=== PATIENT | female | born 1980 | race Caucasian/White ===

== ENCOUNTER 2016-08-07 00:25 | Emergency (ER) | payer SELFPAY ==
[2016-08-07] MEDS ORDERED: HYDROCODONE/ACETAMINOPHEN 5-325 MG TABLET PO ONE (01:57)
[2016-08-07] MEDS ORDERED: HYDROCODONE/ACETAMINOPHEN 5-325 MG 6 TAB/DSPK PO PRN (01:57)
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
[2016-08-07 03:12] VITALS: BP 134/76
== END 2016-08-07 02:50 | disposition home or self-care (01) ==
LOC: ER 00:25
PROC: 2W3FX1Z Immobilization of Left Hand using Splint (ICD-10-PCS; principal; 2016-08-07)
DX: S62.617A Displaced fracture of proximal phalanx of left little finger, initial encounter for closed fracture (principal); Y04.0XXA Assault by unarmed brawl or fight, initial encounter; I10 Essential (primary) hypertension; Z98.51 Tubal ligation status; Z88.2 Allergy status to sulfonamides
CPT/HCPCS: 99283

== ENCOUNTER 2017-07-17 17:17 | Emergency (ER) | payer SELFPAY ==
[2017-07-17 18:18] VITALS: BP 129/67
--- NOTE | 2017-07-17 18:52 | ER Document Report ---
ED Medical Screen (RME) - General Chief Complaint: Feet Swelling Stated Complaint: FOOT PAIN Time Seen by Provider: 07/17/17 18:46 Mode of Arrival: Ambulatory Information source: Patient TRAVEL OUTSIDE OF THE [place] IN LAST 30 DAYS: No - HPI Notes: 07/17/17 18:47 37 yr old with a hx of postural orthostatic tachycardia syndrome, SVT, syncopal events reports change in LOC, increased swelling in bilateral ankles/foot, SOB, dizziness, chest pain and shaking that started approximately 18 hours ago. worse with time, nothing makes better. denies any trauma. unable to seek healthcare due to no health insurance. denies . in no active distress. no blood thinners. takes daily asa. 07/17/17 18:54 - Related Data Allergies/Adverse Reactions: Sulfa (Sulfonamide Antibiotics) Allergy (Verified 07/17/17 18:12) Past Medical History - Past Medical History Cardiac Medical History: Reports: Hx Hypertension - Labile Pulmonary Medical History: Reports: Hx Asthma Renal/ Medical History: Denies: Hx Peritoneal Dialysis Musculoskeltal Medical History: Reports Hx Fibromyalgia Psychiatric Medical History: Reports: Hx Anxiety Past Surgical History: Reports: Hx Tonsillectomy, Hx Tubal Ligation - Immunizations Immunizations up to date: Yes Hx Diphtheria, Pertussis, Tetanus Vaccination: Yes Physical Exam - Vital signs Vitals: Temp Pulse Resp BP Pulse Ox 98.4 F 131 H 12 129/67 H 98 07/17/17 18:17 07/17/17 18:17 07/17/17 18:17 07/17/17 18:17 07/17/17 18:17 - Respiratory Respiratory status: No respiratory distress Chest status: Nontender Breath sounds: Normal Chest palpation: Normal - Cardiovascular Rhythm: Regular, Tachycardia Heart sounds: Normal auscultation Murmur: No Normal capillary refill: No - Skin Skin Temperature: Warm Skin Moisture: Dry - bilateral pedal edema. + distal pulses Course - Vital Signs Vital signs: Temp Pulse Resp BP Pulse Ox 98.4 F 131 H 12 129/67 H 98 07/17/17 18:17 07/17/17 18:17 07/17/17 18:17 07/17/17 18:17 07/17/17 18:17
--- NOTE | 2017-07-17 19:35 | RADIOLOGY REPORT (SQ) ---
EXAM DESCRIPTION: CHEST PA/LAT COMPLETED DATE/TIME: 07/17/2017 7:13 pm REASON FOR STUDY: sob COMPARISON: 06/22/2015 EXAM PARAMETERS: NUMBER OF VIEWS: two views TECHNIQUE: Digital Frontal and Lateral radiographic views of the chest acquired. RADIATION DOSE: NA LIMITATIONS: none FINDINGS: LUNGS AND PLEURA: No opacities, masses or pneumothorax. No pleural effusion. MEDIASTINUM AND HILAR STRUCTURES: No masses or contour abnormalities. HEART AND VASCULAR STRUCTURES: Heart normal size. No evidence for failure. BONES: No acute findings. HARDWARE: None in the chest. OTHER: No other significant finding. IMPRESSION: NO SIGNIFICANT RADIOGRAPHIC FINDING IN THE CHEST. TECHNICAL DOCUMENTATION: JOB ID: [id number] [employer]- All Rights Reserved
== END 2017-07-17 21:30 | disposition left against medical advice (07) ==
LOC: ER 17:17
DX: M79.89 Other specified soft tissue disorders (principal); M79.672 Pain in left foot; M79.671 Pain in right foot; I10 Essential (primary) hypertension; Z98.51 Tubal ligation status; Z88.2 Allergy status to sulfonamides
CPT/HCPCS: 71046; 99281

== ENCOUNTER 2017-11-18 00:13 | Emergency (ER) | payer MEDICAID ==
[2017-11-18 00:20] VITALS: BP 115/64
== END 2017-11-18 03:30 | disposition left against medical advice (07) ==
LOC: ER 00:13
DX: Z53.21 Procedure and treatment not carried out due to patient leaving prior to being seen by health care provider (principal)

== ENCOUNTER 2018-01-12 00:21 | Emergency (ER) | payer MEDICAID ==
--- NOTE | 2018-01-12 04:11 | ER Document Report ---
ED Medical Screen (RME) - General Chief Complaint: Probable Seizure Stated Complaint: HIT HEAD Time Seen by Provider: 01/12/18 04:07 Mode of Arrival: Ambulatory Information source: Patient Notes: 37-year-old female patient who presents with chief complaint of seizure. Patient reports she was on the phone with her father when she "passed out, woke up sometime later, had urinated on herself and felt all over soreness to entire body. Patient reports she also noted seizure 3 weeks ago. Patient reports that was the first time she ever had a seizure, did not seek medical treatment. Patient does not take any medications for seizures. Patient reports she has been under extreme stress lately. Patient also reports headaches every day for the last 3 weeks, reports that they are intermittent. Patient does report having headaches in the past however she states these headaches are "different" . Patient does have a past medical history of hypertension, pots, SVT. Patient is a smoker. Patient denies any alcohol use. Exam: Hematoma noted to right forehead. Patient alert, oriented and not postictal at this time. Lung sounds clear to auscultation bilaterally. I have greeted and performed a rapid initial assessment of this patient. A comprehensive ED assessment and evaluation of the patient, analysis of test results and completion of the medical decision making process will be conducted by additional ED providers. Dictation of this chart was performed using voice recognition software; therefore, there may be some unintended grammatical errors. TRAVEL OUTSIDE OF THE [place] IN LAST 30 DAYS: No - Related Data Allergies/Adverse Reactions: Sulfa (Sulfonamide Antibiotics) Allergy (Verified 07/17/17 18:12) Past Medical History - Past Medical History Cardiac Medical History: Reports: Hx Hypertension - Labile Pulmonary Medical History: Reports: Hx Asthma Renal/ Medical History: Denies: Hx Peritoneal Dialysis Musculoskeltal Medical History: Reports Hx Fibromyalgia Psychiatric Medical History: Reports: Hx Anxiety Past Surgical History: Reports: Hx Tonsillectomy, Hx Tubal Ligation - Immunizations Immunizations up to date: Yes Hx Diphtheria, Pertussis, Tetanus Vaccination: Yes Physical Exam - Vital signs Vitals: Temp Pulse Resp BP Pulse Ox 98.0 F 85 17 139/78 H 99 01/12/18 00:32 01/12/18 00:32 01/12/18 00:32 01/12/18 00:32 01/12/18 00:32 Course - Vital Signs Vital signs: Temp Pulse Resp BP Pulse Ox 98.0 F 85 17 139/78 H 99 01/12/18 00:32 01/12/18 00:32 01/12/18 00:32 01/12/18 00:32 01/12/18 00:32
[2018-01-12 05:10] LABS: ABSOLUTE EOSINOPHILS # (AUTO) 0.3 10^3/uL (0.0-0.6); ABSOLUTE LYMPHOCYTES (AUTO) 3.8 10^3/uL (0.5-4.7); ABSOLUTE MONOCYTES (AUTO) 0.7 10^3/uL (0.1-1.4); ABSOLUTE NEUT (AUTO) 5.5 10^3/uL (1.7-8.2); BASOPHILS % (AUTO) 0.4 % (0-2); EOSINOPHILS % (AUTO) 2.7 % (0-6); HEMATOCRIT 42.9 % (36.0-47.0); LYMPHOCYTES % (AUTO) 37.2 % (13-45); MEAN CORPUSCULAR HGB CONC 34.9 g/dL (32.0-36.0); MEAN CORPUSCULAR VOLUME 92 fl (80-97); MONOCYTES % (AUTO) 6.4 % (3-13); PLATELET COUNT 188 10^3/uL (150-450); RED BLOOD COUNT 4.67 10^6/uL (3.72-5.28); RED CELL DISTRIBUTION WIDTH 12.8 % (11.5-14.0); SEGMENTED NEUTROPHILS % (AUTO) 53.3 % (42-78); TOTAL CELLS COUNTED % (AUTO) 100 %; WHITE BLOOD COUNT 10.2 10^3/uL (4.0-10.5)
[2018-01-12 05:15] LABS: APPEARANCE,URINE SLIGHTLY-CLOUDY; BILIRUBIN,URINE NEGATIVE (NEGATIVE); COLOR,URINE YELLOW; GLUCOSE, URINE NEGATIVE (NEGATIVE); KETONES,URINE NEGATIVE (NEGATIVE); LEUKOCYTE ESTERASE,URINE TRACE (NEGATIVE); NITRITE,URINE NEGATIVE (NEGATIVE); PROTEIN,URINE NEGATIVE (NEGATIVE); URINE SPECIFIC GRAVITY 1.024; UROBILINOGEN,URINE NEGATIVE mg/dL (<2.0)
[2018-01-12 05:29] LABS: ALANINE AMINOTRANSFERASE 22 U/L (9-52); ALKALINE PHOSPHATASE 60 U/L (38-126); ANION GAP 16 (5-19); ASPARTATE AMINO TRANSFERASE 19 U/L (14-36); BILIRUBIN,DIRECT 0.3 mg/dL (0.0-0.4); BILIRUBIN,TOTAL 0.3 mg/dL (0.2-1.3); BLOOD UREA NITROGEN 15 mg/dL (7-20); CALCIUM 10.4 mg/dL (8.4-10.2); CARBON DIOXIDE 31 mmol/L (22-30); CHLORIDE 103 mmol/L (98-107); GLUCOSE 113 mg/dL (75-110); POTASSIUM 5.4 mmol/L (3.6-5.0); SODIUM 149.5 mmol/L (137-145); TOTAL PROTEIN 8.4 g/dL (6.3-8.2)
--- NOTE | 2018-01-12 05:31 | RADIOLOGY REPORT (SQ) ---
EXAM DESCRIPTION: CT HEAD WITHOUT IV CONTRAST COMPLETED DATE/TME: 01/12/2018 04:07 CLINICAL HISTORY: new onset seizures COMPARISON: 07/14/2014 TECHNIQUE: Axial CT of the head obtained from the skull apex to the skull base without contrast. FINDINGS: No acute intracranial hemorrhage identified. No mass, mass effect, shift of the midline, abnormal extra-axial fluid collection or CT evidence of acute ischemic change identified. The ventricular system is unremarkable. No acute abnormalities of the supratentorial white matter, basal ganglia, cerebellum, or brainstem. The visualized paranasal sinuses and the mastoids are clear. No skull fracture identified. Visualized orbits and globes are unremarkable. DLP: 1150.19 mGy-cm IMPRESSION: 1. No acute intracranial abnormality identified. This exam was performed according to our departmental dose-optimization program, which includes automated exposure control, adjustment of the mA and/or kV according to patient size and/or use of iterative reconstruction technique.
--- NOTE | 2018-01-12 07:59 | ER Document Report ---
ED Seizure <ZAINAB COVARRUBIAS - Last Filed: 01/12/18 08:05> - General Information source: Patient <DANNY SO - Last Filed: 01/12/18 11:14> - General Chief Complaint: Probable Seizure Stated Complaint: HIT HEAD Time Seen by Provider: 01/12/18 04:07 Notes: 37-year-old female that presents to the emergency department today with complaints of a seizure prior to arrival. Patient states she was on her phone with a dad at 1947 last night when her symptoms began. Patient states she was on the phone with him and the next thing she remembers her dog was licking her face. Patient states that she vomited and urinated on herself during that episode. Patient has a right forehead hematoma from the fall from standing that occurred during the seizure. Patient had a witnessed generalized seizure 3 weeks ago which was her first seizure. This makes her second seizure in 3 weeks although she has never formally been diagnosed with any seizure disorder. (DANNY SO) - Related Data Allergies/Adverse Reactions: Sulfa (Sulfonamide Antibiotics) Allergy (Verified 07/17/17 18:12) Past Medical History - General Information source: Patient - Social History Smoking Status: Current Every Day Smoker Cigarette use (# per day): Yes Frequency of alcohol use: None Drug Abuse: None Lives with: Family Family History: Reviewed & Not Pertinent Patient has suicidal ideation: No Patient has homicidal ideation: No - Past Medical History Cardiac Medical History: Reports: Hx Hypertension - Labile Pulmonary Medical History: Reports: Hx Asthma Neurological Medical History: Reports: Hx Seizures Musculoskeletal Medical History: Reports Hx Fibromyalgia Psychiatric Medical History: Reports: Hx Anxiety Past Surgical History: Reports: Hx Tonsillectomy, Hx Tubal Ligation - Immunizations Immunizations up to date: Yes Hx Diphtheria, Pertussis, Tetanus Vaccination: Yes <DANNY SO - Last Filed: 01/12/18 11:14> Review of Systems - Review of Systems Constitutional: No symptoms reported EENT: No symptoms reported Cardiovascular: No symptoms reported Respiratory: No symptoms reported Gastrointestinal: No symptoms reported Genitourinary: No symptoms reported Female Genitourinary: No symptoms reported Musculoskeletal: No symptoms reported Skin: No symptoms reported Hematologic/Lymphatic: No symptoms reported Neurological/Psychological: See HPI, Seizure -: Yes All other systems reviewed and negative <DANNY SO - Last Filed: 01/12/18 11:14> Physical Exam <ZAINAB COVARRUBIAS - Last Filed: 01/12/18 08:05> <DANNY SO - Last Filed: 01/12/18 11:14> - Vital signs Vitals: Temp Pulse Resp BP Pulse Ox 98.0 F 85 17 139/78 H 99 01/12/18 00:32 01/12/18 00:32 01/12/18 00:32 01/12/18 00:32 01/12/18 00:32 - Notes Notes: Physical Exam: General: Alert, appears well. 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 HEENT: Normocephalic. Large hematoma on right forehead. PERRL. Extraocular movements intact. Oropharynx clear. No tongue laceration. Neck: Supple. Non-tender. Respiratory: No respiratory distress. Clear and equal breath sounds bilaterally. Cardiovascular: Regular rate and rhythm. Abdominal: Normal Inspection. Non-tender. No distension. Normal Bowel Sounds. Back: Non-tender. No deformity or step off. Extremities: Moves all four extremities. Upper extremities: Normal inspection. Normal ROM. Lower extremities: Normal inspection. No edema. Normal ROM. Neurological: Normal cognition. AAOx4. Normal speech. Psychological: Normal affect. Normal Mood. Skin: Warm. Dry. Normal color. (DANNY SO) Course - Laboratory Result Diagrams: 01/12/18 04:30 01/12/18 04:30 - Diagnostic Test Radiology reviewed: Reports reviewed - CT scan shows large hematoma to the right forehead, no intracranial abnormalities. - EKG Interpretation by Al EKG shows normal: Sinus rhythm, [place], Intervals, QRS Complexes, ST-T Waves Rate: Normal - 59 Rhythm: NSR <ZAINAB COVARRUBIAS - Last Filed: 01/12/18 08:05> - Laboratory Result Diagrams: 01/12/18 04:30 01/12/18 04:30 <DANNY SO - Last Filed: 01/12/18 11:14> - Vital Signs Vital signs: Temp Pulse Resp BP Pulse Ox 98.1 F 63 12 106/87 H 99 01/12/18 05:39 01/12/18 04:40 01/12/18 08:00 01/12/18 08:00 01/12/18 08:00 - Laboratory Laboratory results interpreted by me: 01/12/18 01/12/18 04:30 04:30 Sodium 149.5 H Potassium 5.4 H Carbon Dioxide 31 H Glucose 113 H Calcium 10.4 H Total Protein 8.4 H Ur Leukocyte Esterase TRACE H Discharge <ZAINAB COVARRUBIAS - Last Filed: 01/12/18 08:05> <DANNY SO - Last Filed: 01/12/18 11:14> - Discharge Clinical Impression: Seizure disorder Forehead contusion Qualifiers: Encounter type: initial encounter Qualified Code(s): S00.83XA - Contusion of other part of head, initial encounter Condition: Stable Disposition: HOME, SELF-CARE Additional Instructions: Seizure You have had a seizure. Seizure disorders (epilepsy) of one sort or another affect about one out of 50 people. The seizure occurs because of abnormal electrical activity in the brain. Seizures may be due to drugs and alcohol, strokes, brain injury, or infection. In the most common form of epilepsy, no cause can be found. You will require further evaluation to determine the cause of your seizure, and to determine whether anti-seizure medication is required. This follow-up testing is important, so please call us if you encounter problems with scheduling of tests or appointments. YOU SHOULD NOT DRIVE until released to do so by your physician. The law requires that seizures be reported to the electric truck driver's license bureau--a seizure while driving could be catastrophic. Call the doctor if seizures recur, or if you develop new symptoms such as fever, severe headache, stiff neck, confusion or increasing sleepiness, weakness or numbness, or visual problems. Take medication as prescribed to reduce the risk of another seizure. Use ice packs to her forehead today to help reduce the swelling and pain. Follow-up with your doctor Monday morning to discuss working up your seizure disorder. RETURN TO THE EMERGENCY ROOM IF ANY NEW OR WORSENING SYMPTOMS. Prescriptions: Levetiracetam [Keppra 500 mg Tablet] 500 mg PO Q12 #30 tablet Scribe Attestation: 01/12/18 08:04 I personally performed the services described in the documentation, reviewed and edited the documentation which was dictated to the scribe in my presence, and it accurately records my words and actions. (ZAINAB COVARRUBIAS) Scribe Documentation - Scribe Written by Sakina:: Sakina Lee, 01/12/2018 1114 acting as scribe for :: Brian <DANNY SO - Last Filed: 01/12/18 11:14>
[2018-01-12] MEDS ORDERED: LEVETIRACETAM 500 MG TABLET PO ONE (08:02)
[2018-01-12 08:22] VITALS: BP 106/87
[2018-01-12 08:32] LABS: CREATINE KINASE 55 U/L (30-135)
[2018-01-12 08:40] LABS: URINE AMPHETAMINES SCREEN NEGATIVE; URINE BARBITURATES SCREEN NEGATIVE; URINE BENZODIAZEPINES SCREEN UNCONFIRMED POSITIVE; URINE COCAINE SCREEN NEGATIVE; URINE MARIJUANA (THC) SCREEN NEGATIVE; URINE METHADONE SCREEN NEGATIVE; URINE PHENCYCLIDINE SCREEN NEGATIVE
--- NOTE | 2018-01-12 09:58 | EKG REPORT ---
SEVERITY:- NORMAL ECG - SINUS RHYTHM : Confirmed by: Noa Candelario MD 12-Jan-2018 09:58:09
== END 2018-01-12 08:29 | disposition home or self-care (01) ==
LOC: ER 00:21
DX: G40.909 Epilepsy, unspecified, not intractable, without status epilepticus (principal); S00.83XA Contusion of other part of head, initial encounter; W18.39XA Other fall on same level, initial encounter; Y93.89 Activity, other specified; R11.10 Vomiting, unspecified; R32 Unspecified urinary incontinence; I49.8 Other specified cardiac arrhythmias; F17.210 Nicotine dependence, cigarettes, uncomplicated; I10 Essential (primary) hypertension; Z88.2 Allergy status to sulfonamides
CPT/HCPCS: 93005; 99285; 36415; 82550; 83735; 85025; 81025; 80053; 81001; 80307; 70450; 93010; J3490

== ENCOUNTER 2018-02-03 11:32 | Emergency (ER) | payer MEDICAID ==
--- NOTE | 2018-02-03 12:02 | ER Document Report ---
ED Medical Screen (RME) - General Chief Complaint: Probable Seizure Stated Complaint: SEIZURES Time Seen by Provider: 02/03/18 12:01 TRAVEL OUTSIDE OF THE [place] IN LAST 30 DAYS: No - HPI Notes: 02/03/18 12:01 Possible seizure disorder has not followed up with neurology since her last visit was started on Keppra here states compliance with Keppra no obvious distress upon my evaluation possible seizures today - Related Data Allergies/Adverse Reactions: Sulfa (Sulfonamide Antibiotics) Allergy (Verified 02/03/18 11:45) Past Medical History - Past Medical History Cardiac Medical History: Reports: Hx Hypertension - Labile Pulmonary Medical History: Reports: Hx Asthma Neurological Medical History: Reports: Hx Seizures Renal/ Medical History: Denies: Hx Peritoneal Dialysis Musculoskeltal Medical History: Reports Hx Fibromyalgia Psychiatric Medical History: Reports: Hx Anxiety Past Surgical History: Reports: Hx Tonsillectomy, Hx Tubal Ligation - Immunizations Immunizations up to date: Yes Hx Diphtheria, Pertussis, Tetanus Vaccination: Yes Review of Systems - Review of Systems Constitutional: Other - Seizure Physical Exam - Respiratory Respiratory status: No respiratory distress Chest status: Nontender Breath sounds: Normal Chest palpation: Normal - Cardiovascular Rhythm: Regular Heart sounds: Normal auscultation
[2018-02-03] MEDS ORDERED: NORMAL SALINE 1000 ML 1,000 ML IV ONE (12:03)
[2018-02-03 12:47] LABS: ABSOLUTE LYMPHOCYTES (AUTO) 1.5 10^3/uL (0.5-4.7); ABSOLUTE MONOCYTES (AUTO) 0.4 10^3/uL (0.1-1.4); ABSOLUTE NEUT (AUTO) 7.5 10^3/uL (1.7-8.2); BASOPHILS % (AUTO) 0.2 % (0-2); EOSINOPHILS % (AUTO) 0.1 % (0-6); HEMATOCRIT 42.3 % (36.0-47.0); HEMOGLOBIN 14.6 g/dL (12.0-15.5); LYMPHOCYTES % (AUTO) 15.9 % (13-45); MEAN CORPUSCULAR HEMOGLOBIN 31.2 pg (27.0-33.4); MEAN CORPUSCULAR HGB CONC 34.5 g/dL (32.0-36.0); MEAN CORPUSCULAR VOLUME 90 fl (80-97); MONOCYTES % (AUTO) 3.7 % (3-13); PLATELET COUNT 266 10^3/uL (150-450); RED BLOOD COUNT 4.68 10^6/uL (3.72-5.28); RED CELL DISTRIBUTION WIDTH 12.8 % (11.5-14.0); SEGMENTED NEUTROPHILS % (AUTO) 80.1 % (42-78); TOTAL CELLS COUNTED % (AUTO) 100 %; WHITE BLOOD COUNT 9.4 10^3/uL (4.0-10.5)
--- NOTE | 2018-02-03 12:54 | ER Document Report ---
ED Seizure - General Chief Complaint: Probable Seizure Stated Complaint: SEIZURES Time Seen by Provider: 02/03/18 12:01 Mode of Arrival: Ambulatory Information source: Patient - HPI Patient complains to provider of: Other - Second seizure, 37-year-old female with a past medical history significant for pots as well as depression who has had an episode of a single seizure 2 weeks prior followed today by a repeat episode in which she awoke after losing consciousness while on Facebook in bed she noted that she lost continence of urine felt very fatigued and confused thereafter at which time she called for help. She has chronic headaches as a result of her which she believes p.o. TS, nothing seems to make them any better , she takes primarily Tylenol as well as Benadryl and a medication for cholesterol. She is a pack per day smoker still. - Related Data Allergies/Adverse Reactions: Sulfa (Sulfonamide Antibiotics) Allergy (Verified 02/03/18 11:45) Past Medical History - General Information source: Patient - Social History Smoking Status: Current Every Day Smoker Family History: Reviewed & Not Pertinent Patient has suicidal ideation: No Patient has homicidal ideation: No - Past Medical History Cardiac Medical History: Reports: Hx Hypertension - Labile Pulmonary Medical History: Reports: Hx Asthma Neurological Medical History: Reports: Hx Seizures Renal/ Medical History: Denies: Hx Peritoneal Dialysis Musculoskeletal Medical History: Reports Hx Fibromyalgia Psychiatric Medical History: Reports: Hx Anxiety Past Surgical History: Reports: Hx Tonsillectomy, Hx Tubal Ligation - Immunizations Immunizations up to date: Yes Hx Diphtheria, Pertussis, Tetanus Vaccination: Yes Review of Systems - Review of Systems -: Yes All other systems reviewed and negative Physical Exam - Vital signs Vitals: Temp Pulse Resp BP Pulse Ox 99.9 F 80 16 125/67 99 02/03/18 11:52 02/03/18 11:52 02/03/18 11:52 02/03/18 11:52 02/03/18 11:52 - General General appearance: Appears well In distress: None - HEENT Head: Normocephalic Eyes: Normal Conjunctiva: Normal Cornea: Normal - Respiratory Respiratory status: No respiratory distress Chest status: Nontender Breath sounds: Normal Chest palpation: Normal - Cardiovascular Rhythm: Regular Heart sounds: Normal auscultation Murmur: No - Abdominal Inspection: Normal Distension: No distension Tenderness: Nontender Organomegaly: No organomegaly - Back Back: Normal - Extremities General upper extremity: Normal inspection, Normal ROM General lower extremity: Normal inspection, Normal ROM - Neurological Neuro grossly intact: Yes Cognition: Normal Orientation: AAOx4, Disoriented to events Eric Coma Scale Eye Opening: Spontaneous Eric Coma Scale Verbal: Oriented [place] Coma Scale Motor: Obeys Commands [place] Coma Scale Total: 15 Speech: Normal Cranial nerves: Normal Cerebellar coordination: Normal Motor strength normal: LUE, RUE, LLE, RLE 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 She is neurologically intact at this time but did briefly it sounds like a postictal. We will obtain MRI of the brain as well as labs. MRI of the brain does not demonstrate any obvious intracranial process underlying this patient's potential epilepsy, she is currently scheduled to see a neurologist undergo EEG monitoring. She notes that each time she has had one of the 3 epileptiform events she has had at least 2 days without sleep leading up to it. Treated the patient's headache in the emergency department with a standard migraine cocktail after which she did have an improvement in her symptoms. Spoke with the patient at length about potential underlying causes for seizures , it does sound like this patient does have many life stressors and at this point likely has depression developing as she does stay inside of the house almost all points in time. Because of her depression she is having difficulty in remembering to take all her medications she is likely missed several doses of her Keppra she acknowledges today. Patient will be encouraged to continue to utilize Keppra at home as previously directed. She will be given a brief prescription of Fioricet for her headache. She will follow-up with her neurologist she will follow standard seizure precautions. She was offered further monitoring and declined. - Vital Signs Vital signs: Temp Pulse Resp BP Pulse Ox 98.7 F 79 18 121/62 99 02/03/18 16:22 02/03/18 16:22 02/03/18 16:22 02/03/18 16:22 02/03/18 16:22 - Laboratory Result Diagrams: 02/03/18 12:17 02/03/18 12:17 Laboratory results interpreted by me: 02/03/18 02/03/18 02/03/18 11:55 12:17 12:17 Seg Neutrophils % 80.1 H Creatine Kinase Total Protein 8.6 H Albumin 5.1 H Urine Protein 100 H Urine Blood MODERATE H Ur Leukocyte Esterase TRACE H 02/03/18 12:17 Seg Neutrophils % Creatine Kinase 172 H Total Protein Albumin Urine Protein Urine Blood Ur Leukocyte Esterase Discharge - Discharge Clinical Impression: Seizure Condition: Good Disposition: HOME, SELF-CARE Instructions: Seizure, Known Epileptic (OM) Prescriptions: Butalb/Acetaminophen/Caffeine [Fioricet 50-300-40 mg Capsule] 1 cap PO Q4 PRN # 30 cap PRN Reason: Diazepam [Diastat 2.5 Mg/0.5 Ml Rectal Gel] 2.5 mg [place] ONCE PRN #1 kit PRN Reason: Seizures
[2018-02-03 13:11] LABS: ALANINE AMINOTRANSFERASE 21 U/L (9-52); ALBUMIN 5.1 g/dL (3.5-5.0); ALKALINE PHOSPHATASE 57 U/L (38-126); ANION GAP 14 (5-19); ASPARTATE AMINO TRANSFERASE 20 U/L (14-36); BILIRUBIN,DIRECT 0.3 mg/dL (0.0-0.4); BILIRUBIN,TOTAL 0.5 mg/dL (0.2-1.3); BLOOD UREA NITROGEN 9 mg/dL (7-20); CALCIUM 10.1 mg/dL (8.4-10.2); CARBON DIOXIDE 26 mmol/L (22-30); CHLORIDE 104 mmol/L (98-107); GLUCOSE 109 mg/dL (75-110); LIPASE 72.6 U/L (23-300); POTASSIUM 4.6 mmol/L (3.6-5.0); SODIUM 143.5 mmol/L (137-145); TOTAL PROTEIN 8.6 g/dL (6.3-8.2)
[2018-02-03] MEDS ORDERED: METOCLOPRAMIDE HCL INJ/PF 10 MG/2 ML SDV IV ONE (13:24)
[2018-02-03] MEDS ORDERED: DIPHENHYDRAMINE HCL 50 MG/ML VIAL IV ONE (13:24)
[2018-02-03] MEDS ORDERED: KETOROLAC TROMETHAMINE INJ/PF 30 MG/1 ML SDV IV ONE (13:24)
[2018-02-03 13:37] LABS: APPEARANCE,URINE TURBID; BILIRUBIN,URINE NEGATIVE (NEGATIVE); COLOR,URINE YELLOW; GLUCOSE, URINE NEGATIVE (NEGATIVE); KETONES,URINE NEGATIVE (NEGATIVE); LEUKOCYTE ESTERASE,URINE TRACE (NEGATIVE); NITRITE,URINE NEGATIVE (NEGATIVE); PROTEIN,URINE 100 mg/dL (NEGATIVE); URINE SPECIFIC GRAVITY 1.023; UROBILINOGEN,URINE NEGATIVE mg/dL (<2.0)
[2018-02-03 13:40] LABS: URINE AMPHETAMINES SCREEN NEGATIVE; URINE BARBITURATES SCREEN NEGATIVE; URINE BENZODIAZEPINES SCREEN UNCONFIRMED POSITIVE; URINE COCAINE SCREEN NEGATIVE; URINE MARIJUANA (THC) SCREEN NEGATIVE; URINE METHADONE SCREEN NEGATIVE; URINE PHENCYCLIDINE SCREEN NEGATIVE
--- NOTE | 2018-02-03 15:27 | RADIOLOGY REPORT (SQ) ---
EXAM DESCRIPTION: MRI HEAD COMBO COMPLETED DATE/TIME: 02/03/2018 2:11 pm REASON FOR STUDY: concern for leison, recurrent seizure headache memory loss dizziness COMPARISON: CT brain 01/12/2018, 07/14/2014 TECHNIQUE: Multiplanar imaging includes noncontrasted T1, T2, FLAIR, diffusion with ADC map and post gadolinium contrast T1 sequences. Images stored on PACS. CONTRAST TYPE AND DOSE: 10 mL Dotarem. RENAL FUNCTION: GFR > 60. LIMITATIONS: None. FINDINGS: ANATOMY: No anomalies. Normal vascular flow voids. Pituitary fossa normal. CSF SPACES: Normal in size and contour. No hemorrhage. CEREBRUM: Sulci and gyri normal in size and contour. Normal white matter signal on FLAIR imaging. No evidence of hemorrhage, mass, or extraaxial fluid collection. No abnormal enhancement post contrast. POSTERIOR FOSSA: No signal alteration. No hemorrhage. No edema, masses, or mass effect. Internal taina tory canals, cerebellopontine angles, mastoids normal. No enhancing lesions. No abnormal enhancement post contrast. DIFFUSION IMAGING: Negative for acute or subacute infarction. ORBITS: No masses. Globes normal. PARANASAL SINUSES: No fluid levels. Mucosa normal. OTHER: No other significant finding. IMPRESSION: NORMAL MRI OF THE BRAIN WITHOUT AND WITH INTRAVENOUS GADOLINIUM CONTRAST. EVIDENCE OF ACUTE STROKE: NO. TECHNICAL DOCUMENTATION: JOB ID: [id number] [employer]- All Rights Reserved Reading location - IP/workstation name: [email or web address]
[2018-02-03 16:28] VITALS: BP 121/62
== END 2018-02-03 16:22 | disposition home or self-care (01) ==
LOC: ER 11:32
DX: R56.9 Unspecified convulsions (principal); F32.9 Major depressive disorder, single episode, unspecified; R32 Unspecified urinary incontinence; R53.83 Other fatigue; F17.200 Nicotine dependence, unspecified, uncomplicated; I10 Essential (primary) hypertension; J45.909 Unspecified asthma, uncomplicated
CPT/HCPCS: 99284; 96361; 96374; 96375; 36415; 80177; 82550; 84702; 83690; 85025; 81025; 80053; 81001; 80307; 70553; A9576; J1200; J1885; J2765; J7030